=== PATIENT | female | born 1990 | race Caucasian/White ===

== ENCOUNTER 2021-05-12 11:03 | Emergency (ER) | payer BC, SELFPAY ==
--- NOTE | ~2021-05-12 | US_ITS ---
EXAMINATION: US pelvic complete w TV DATE: 05/12/2021 15:02 INDICATION: Severe pelvic pain, history of section and tubal ligation TECHNIQUE: Multiple transabdominal and endovaginal sonographic images of the pelvis were obtained. COMPARISON: None. FINDINGS: The uterus measures 3.4 x 6.6 x 4.9 cm. The endometrial complex measures 14 mm. There is a small amount of fluid in the endocervical canal. The right ovary measures 3.4 x 1.8 x 1.9 cm. The lef t ovary is not well demonstrated. There is an approximately 7.4 x 3.1 cm complex cystic and solid mas s of the left adnexa. There is a moderate volume of free fluid in the left adnexa and pelvis. IMPRESSION: 1. Complex cystic and solid mass of the left adnexa which could reflect an ovarian neoplasm, they rel ated to the fallopian tube, or of other etiology. Further evaluation by CT with contrast is recommend ed. These findings and recommendations were discussed with Dr. Araceli Saucedo MD in the Emergency Department at 1519 hours on 05/12/2021. Reviewed, dictated and finalized at location A. CARE COORDINATOR IMPRESSION: 1. Complex cystic and solid mass of the left adnexa which could reflect an ovar eliza neoplasm, they related to the fallopian tube, or of other etiology. Further evaluation by CT with contrast is recommended. These findings and recommendati ons were discussed with Dr. Araceli Saucedo MD in the Emergency Department at 1519 hours on 05/12/2021.
--- NOTE | ~2021-05-12 | CT_ITS ---
EXAMINATION: CT abdomen pelvis w con DATE: 05/12/2021 16:17 INDICATION: Left adnexal mass. Low abdominal pain. TECHNIQUE: Computed tomography (CT) of the abdomen and pelvis was performed with 100 mL Omnipaque 350 intravenous contrast. Automated exposure control and iterative reconstruction technique were employe d. The dose-length product was 678.33 mGy-cm. COMPARISON: Pelvis ultrasound 05/12/2021 FINDINGS: The visualized portions of the lung bases demonstrate mild atelectasis. No pleural effusion . The heart size is normal. No pericardial effusion. The liver, spleen, pancreas, and adrenal glands are normal. There are gallstones in the gallbladder, which is normal in size. There is a 7 mm cyst in right kidney. Left kidney is normal. There are no dilated loops of bowel. The appendix is normal. Th ere is a small umbilical hernia containing fat. There are no pathologically enlarged lymph nodes. The re is acute hematoma in the pelvis around the uterus and ovaries. There is mild thoracic spondylosis. IMPRESSION: 1. Acute hematoma in the pelvis around the uterus and ovaries. This finding could be from a ruptured cyst of the left ovary. Reviewed, dictated and finalized at location A. EL HEADER IMPRESSION: 1. Acute hematoma in the pelvis around the uterus and ovaries. This finding cou ld be from a ruptured cyst of the left ovary.
[2021-05-12 11:17] VITALS: BP 164/82; PULSE 94; RESP 20; TEMP 36.7; O2SAT 100
--- NOTE | 2021-05-12 14:55 | ED.ABDPAIN ---
HPI - Abdominal Pain General Chief Complaint: Abdominal Pain Stated Complaint: LOWER ABD PAIN X1D Time Seen by Provider: 05/12/21 13:52 Source: patient and RN notes reviewed Mode of arrival: ambulatory Limitations: no limitations History of Present Illness HPI narrative: This is a 31 year old female with history of Polycystic ovarian syndrome who presents for evaluation of pelvic pain. She developed sudden onset pelvic pain yesterday morning. Her pain has been constant and gradually worsening. She states pain feels similar to her other c section procedures. She took ibuprofen yesterday for her pain but she did not get any relief. She is also complaining about patient in her shoulders. She denies fever, nausea, vomiting, abnormal vaginal discharge or vaginal bleeding. She was evaluated by her life enrichment manager, Dr. Holder, yesterday for her pain. She was placed on Bactrim for UTI yesterday. She has been having urinary hesitancy for several weeks. Related Data Allergies Allergy/AdvReac Type Severity Reaction Status Date / Time No Known Allergies Allergy Verified 05/12/21 14:56 Review of Systems Review of Systems: All systems reviewed & are unremarkable except as noted in HPI and below PMFSH Past Medical History Medical History (Updated 05/12/21 @ 17:16 by Araceli Saucedo MD) PCOS (polycystic ovarian syndrome) Surgical History Surgical History (Updated 05/12/21 @ 15:05 by Araceli Saucedo MD) H/O section Social History Social History (Updated 05/12/21 @ 15:05 by Araceli Saucedo MD) Smoking status: Former smoker Alcohol intake: never Substance use: never Exam Const: General: alert Orientation/consciousness: patient oriented x3 Eyes: EOM: EOMs intact bilaterally Resp: Effort & Inspection: normal respiratory effort and no retractions Auscultation: clear to auscultation bilaterally Cardio: Rate: regular rate Rhythm: regular rhythm Heart sounds: no murmurs GI: GI Palp: Yes Soft to palpation, Yes Tenderness to palpation present (GI) (diffuse), No Guarding due to palpation present (GI) and No Rigid due to palpation Auscultation: normal bowel sounds : General: Yes no CVA tenderness Skin: General skin exam: normal color Rashes: no rashes Neuro: General: patient oriented x3, moves all extremities and CN's II-XI intact bilaterally Psych: Mental Status: mental status grossly normal Affect: normal affect Course Reevaluation(s) Reevaluation #1: I Discussed with patient CT and US results. She has normal hemoglobin. She is comfortable with discharge with pain medication and she was given return precautions. Date: 05/12/21 Time: 17:12 Consultations Consultation #1: I discussed US and CT with Dr. Obando. He agrees patient can be discharge home with pain medication and he can follow up with patient on Saturday. Date: 05/12/21 Time: 17:11 Vital Signs Vital signs: Vital Signs Temperature 98.0 F 05/12/21 11:17 Pulse Rate 94 05/12/21 11:17 Respiratory Rate 20 05/12/21 11:17 Blood Pressure 164/82 H 05/12/21 11:17 Pulse Oximetry 100 05/12/21 11:17 Temperature 98.0 F 05/12/21 11:17 Pulse Rate 91 05/12/21 17:13 Respiratory Rate 18 05/12/21 17:13 Blood Pressure 130/84 05/12/21 17:13 Pulse Oximetry 98 05/12/21 17:13 MDM - Abdominal Pain Lab Data Attestation: I reviewed the patient's lab results. Result diagrams: 05/12/21 15:08 05/12/21 15:08 Labs: Lab Results 05/12/21 05/12/21 05/12/21 Range/Units 15:08 15:08 15:08 WBC 9.5 (4.5-10.0) K/mm3 RBC 4.37 (4.2-5.4) M/mm3 Hgb 13.1 (12.0-15.0) g/dL Hct 39.5 (37.0-47.0) % MCV 90.4 (80-100) fl MCH 30.0 (26-34) pg MCHC 33.2 (32-36) g/dl RDW 12.4 (11.5-14.5) % Plt Count 279 (150-375) k/mm3 MPV 9.4 (7.4-10.4) fl Immature Gran % (Auto) 0.3 (0-0.5) % Neut % (Auto) 60.7 (45.5-73.1) % Lymph % (Auto) 31.7 (18.
[2021-05-12] MEDS: KETOROLAC 30 MG/ML VIAL (*BKC) IV PUSH (15:01)
[2021-05-12 15:02] VITALS: BP 108/52; PULSE 70; RESP 18; O2SAT 98
[2021-05-12 15:23] LABS: Basophils Percent Auto 0.3 % (0.2-1.2); Eosinophils Absolute Auto 0.2 K/mm3 (0-0.3); Eosinophils Percent Auto 2.2 % (0-4.4); Hematocrit 39.5 % (37.0-47.0); Hemoglobin 13.1 g/dL (12.0-15.0); Immature Granulocyte Absolute 0.03 K/mm3 (0.00-0.031); Immature Granulocyte Percent A 0.3 % (0-0.5); Lymphocytes Percent Auto 31.7 % (18.3-44.2); Mean Corpuscular HGB Conc 33.2 g/dl (32-36); Mean Corpuscular Volume 90.4 fl (80-100); Mean Platelet Volume 9.4 fl (7.4-10.4); Monocytes Absolute Auto 0.5 K/mm3 (0.1-0.6); Monocytes Percent Auto 4.8 % (2.6-8.5); Neutrophils Absolute Auto 5.8 K/mm3 (1.3-6.7); Neutrophils Percent Auto 60.7 % (45.5-73.1); Platelet Count Result 279 k/mm3 (150-375); Red Blood Count 4.37 M/mm3 (4.2-5.4); Red Cell Distribution Width 12.4 % (11.5-14.5); White Blood Count 9.5 K/mm3 (4.5-10.0)
[2021-05-12 15:34] LABS: Alanine Aminotransferase 16 U/L (4-35); Albumin Level 4.6 g/dL (3.5-5.1); Alkaline Phosphatase 81 U/L (38-126); Anion Gap 10 mmol/L (8-16); Aspartate Amino Transferase 20 U/L (14-36); Bilirubin,Total 0.8 mg/dL (0.2-1.3); Blood Urea Nitrogen 11 mg/dL (7-17); Calcium 9.1 mg/dL (8.4-10.2); Carbon Dioxide 22 mmol/L (22-30); Chloride 104 mmol/L (98-107); Estimated CRCL calculation 114 ml/min; Estimated Glomerular Filt Rate > 60; Glucose 96 mg/dL (65-110); Lipase 29 U/L (23-300); Potassium 3.6 mmol/L (3.4-5.0); Sodium 136 mmol/L (137-145)
[2021-05-12 15:36] LABS: Add Urine Microscopic? YES; Appearance Urine Cloudy (Clear); Bacteria Urine Trace /hpf; Bilirubin Urine Negative (Negative); Blood Urine Negative (Negative); Color Urine Yellow (Yellow); Glucose Urine UA Negative (Negative); Ketones Urine Trace mg/dL (Negative); Leukocyte Esterase Ur Negative LEU/UL (Negative); Mucus Urine Rare /lpf; Nitrate Urine Negative (Negative); Protein Urine Negative (Negative); Specific Grav Ur 1.025 (1.001-1.035); Squamous Epithelial Cell Urine Many /hpf (Few)
[2021-05-12 17:13] VITALS: BP 130/84; PULSE 91; RESP 18; O2SAT 98
== END 2021-05-12 17:51 | disposition home or self-care (01) ==
PROVIDERS: Emergency Provider General Practice
DX: E28.2 Polycystic ovarian syndrome (principal); K66.1 Hemoperitoneum; Z87.891 Personal history of nicotine dependence
CPT/HCPCS: 36415; 74177; 76830; 76856; 80053; 81001; 81025; 83690; 85025; 96374; 99284; J1885; Q9967

== ENCOUNTER 2023-01-04 13:06 | Emergency (ER) | payer OTHER, BC, SELFPAY ==
--- NOTE | ~2023-01-04 | XR_ITS ---
EXAMINATION: XR foot RT min 3V DATE: 01/04/2023 13:28 INDICATION: Right foot injury and pain. TECHNIQUE: 4 views of right foot were obtained. COMPARISON: None. FINDINGS: Bone alignment is normal. No fracture. There is mild osteoarthritis of first metatarsophala ngeal joint and middle naviculocuneiform joint. IMPRESSION: 1. Mild polyarticular osteoarthritis. Reviewed, dictated and finalized at location A.
[2023-01-04 13:18] VITALS: BP 155/102; PULSE 109; RESP 16; TEMP 37.4; O2SAT 99
--- NOTE | 2023-01-04 13:29 | PC.NURSE ---
PT DECLINED WHEELCHAIR TO RADIOLOGY AND ICE FOR COMFORT
--- NOTE | 2023-01-04 13:30 | ED.LOWEXIN ---
HPI - Extremity Injury (Lower) General Chief Complaint: Extremity Injury, Lower Stated Complaint: Right Foot Injury Source: patient and RN notes reviewed History of Present Illness HPI Narrative: 32 yo F presents to urgent care with complaints of right foot pain. Pt states last night, she was getting down, out of her work van when she rolled her right foot underneath her, causing her to fall to the ground. Pt is reporting right foot pain and swelling. Denies any head injury or LOC. Pt presents wearing her father's medical boot, stating this is the only way she can walk. Related Data Allergies Allergy/AdvReac Type Severity Reaction Status Date / Time No Known Allergies Allergy Verified 05/12/21 14:56 Review of Systems Review of Systems: CONSTITUTIONAL: Denies fever, chills, or sweats. EYES: Denies visual changes, redness, or discharge. ENT: Denies otalgia and sore throat CARDIOVASCULAR: Denies chest pain, palpitations, or edema. RESPIRATORY: Denies cough or dyspnea. GASTROINTESTINAL: Denies abdominal pain, nausea, vomiting, or diarrhea. GENITOURINARY: Denies dysuria or hematuria. SKIN: Denies rash or itching. MUSCULOSKELETAL: Right dorsal foot pain NEUROLOGIC: Denies headache, numbness, or weakness. Pertinent positives per HPI. [facility] Past Medical History Medical History (Updated 01/04/23 @ 13:51 by Jonelle Sahu APRN) PCOS (polycystic ovarian syndrome) Surgical History Surgical History (Updated 05/12/21 @ 15:05 by Araceli Saucedo MD) H/O section Social History Social History (Updated 05/12/21 @ 15:05 by Araceli Saucedo MD) Smoking status: Former smoker Alcohol intake: never Substance use: never Comments At the time of my signature, I reviewed and agree with the nursing past medical, surgical, social, and family history. There is no relevant family history pertinent to the patient complaint. Exam Narrative: GENERAL: This is a well-nourished, well-developed patient, in no apparent distress. HEAD: normocephalic, atraumatic. EYES: Sclera clear/white. Vision is grossly intact. EARS: External ears normal, auditory canals clear and without drainage. Hearing grossly intact. NOSE: External nose normal with no obvious nasal discharge, nares without redness, no rhinorrhea. THROAT: Mucous membranes moist, posterior pharynx clear. NECK: Neck supple, non-tender without lymphadenopathy, masses or thyromegaly. CARDIOVASCULAR: Regular rate RESPIRATORY: No respiratory distress SKIN: warm, intact with no suspicious lesions or rash, good texture and turgor. NEURO: awake, alert, and oriented to person, place and time. There were no obvious focal neurologic abnormalities. EXTREMITIES: Right dorsal foot pain and swelling, particularly over the 4th and 5th metatarsals. BACK: Nontender without deformity or crepitus. No flank tenderness. Course Course Level of Care: Express Care Visit Vital Signs Vital signs: Vital Signs Temperature 99.3 F 01/04/23 13:18 Pulse Rate 109 H 01/04/23 13:18 Respiratory Rate 16 01/04/23 13:18 Blood Pressure 155/102 H 01/04/23 13:18 Pulse Oximetry 99 01/04/23 13:18 Oxygen Delivery Room Air 01/04/23 13:18 Temperature 99.3 F 01/04/23 13:18 Pulse Rate 109 H 01/04/23 13:18 Respiratory Rate 16 01/04/23 13:18 Blood Pressure 155/102 H 01/04/23 13:18 Pulse Oximetry 99 01/04/23 13:18 Oxygen Delivery Room Air 01/04/23 13:18 reviewed MDM - Extremity Injury (Lower) MDM Narrative Medical decision making narrative: Use the RICE method at home. May take ibuprofen and/or Tylenol if needed. Follow-up with specialist next week. Differential Diagnosis Differential diagnosis: Likely ankle sprain and strain and other (foot fracture, foot sprain) Imaging Data Radiologist's impression: [facility] [address] [place] [address] XRay Report Signed Patient: Janet Saucedo
== END 2023-01-04 14:01 | disposition home or self-care (01) ==
PROVIDERS: Emergency Provider Nurse Practitioner Family; PCP Physician Assistant
DX: S93.601A Unspecified sprain of right foot, initial encounter (principal); W19.XXXA Unspecified fall, initial encounter; E28.2 Polycystic ovarian syndrome; Z87.891 Personal history of nicotine dependence
CPT/HCPCS: 73630; 99213; G0463

== ENCOUNTER 2023-01-07 11:23 | Emergency (ER) | payer OTHER, BC, SELFPAY ==
--- NOTE | ~2023-01-07 | XR_ITS ---
EXAMINATION: XR foot RT min 3V DATE: 01/07/2023 12:06 INDICATION: Right foot injury. TECHNIQUE: 4 views of right foot were obtained. COMPARISON: None. FINDINGS: There is mild hallux valgus. There are bone fragments dorsolateral to navicular. Joint spac es are normal. There is an enthesophyte at posterior aspect of calcaneal tuberosity. IMPRESSION: 1. Bone fragments dorsolateral to navicular, consistent with avulsion fracture fragments. Reviewed, dictated and finalized at location A.
--- NOTE | ~2023-01-07 | XR_ITS ---
EXAMINATION: XR ankle RT min 3V DATE: 01/07/2023 12:06 INDICATION: Right ankle injury. TECHNIQUE: 4 views of right ankle were obtained. COMPARISON: None. FINDINGS: Bone alignment is normal. No fracture. Joint spaces are normal. There is an enthesophyte at posterior aspect of calcaneal tuberosity. There is ankle soft tissue swelling. IMPRESSION: 1. No fracture. Reviewed, dictated and finalized at location A. IMPRESSION: 1. No fracture.
[2023-01-07 11:43] VITALS: BP 135/87; PULSE 82; RESP 18; TEMP 36.8; O2SAT 100
--- NOTE | 2023-01-07 13:23 | ED.LOWEXIN ---
HPI - Extremity Injury (Lower) General Chief Complaint: Extremity Injury, Lower Stated Complaint: foot injury Time Seen by Provider: 01/07/23 12:08 History of Present Illness HPI Narrative: Patient is a 32-year-old female presenting with a foot injury. 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 States that she has had bruising and pain since then. States that she has been wearing a medical boot that she has from a prior injury which has been helping. She is also been icing it which has been helping. She is concerned for a broken bone. She denies further complaints or injuries. Related Data Allergies Allergy/AdvReac Type Severity Reaction Status Date / Time No Known Allergies Allergy Verified 01/07/23 11:55 Review of Systems Review of Systems: All systems reviewed & are unremarkable except as noted in HPI and below PMFSH Past Medical History Medical History PCOS (polycystic ovarian syndrome) Surgical History Surgical History H/O section Social History Social History Smoking status: Former smoker Alcohol intake: never Substance use: never Exam Narrative: GENERAL: Well-appearing, well-nourished, and in no acute distress. Pleasant and cooperative HEAD: Normocephalic, atraumatic. EYES: PERRLA and EOMI. ENT: Nares clear, no rhinorrhea or epistaxis. Mucous membranes moist. NECK: Supple. CHEST: No respiratory distress. HEART: Regular rate and rhythm. Normal peripheral pulses. ABDOMEN: Nondistended EXTREMITIES: Normal range of motion. Right foot with ecchymoses on the dorsum extending to the base of the toes, very tender over navicular bone, no malleolar tenderness SKIN: Warm, dry, no rash. NEURO: No focal deficits. Alert and oriented x3. PSYCH: Normal mood and affect. Course Vital Signs Vital signs: Vital Signs Temperature 98.2 F 01/07/23 11:43 Pulse Rate 82 01/07/23 11:43 Respiratory Rate 18 01/07/23 11:43 Blood Pressure 135/87 01/07/23 11:43 Pulse Oximetry 100 01/07/23 11:43 Oxygen Delivery Room Air 01/07/23 11:43 Temperature 98.2 F 01/07/23 11:43 Pulse Rate 82 01/07/23 11:43 Respiratory Rate 18 01/07/23 11:43 Blood Pressure 135/87 01/07/23 11:43 Pulse Oximetry 100 01/07/23 11:43 Oxygen Delivery Room Air 01/07/23 11:43 MDM - Extremity Injury (Lower) MDM Narrative Medical decision making narrative: Patient is a 32-year-old female presenting with a right foot and ankle injury after rolling it while getting out of the van. Vital stable. Exam remarkable for the above. X-rays of the foot and ankle reveal avulsion fracture involving the right navicular bone. Discussed the findings with the patient. Advised that she continue to use her medical grade boot as needed. Discussed appropriate supportive care and advised pain control with Tylenol and ibuprofen. Advised PCP follow-up. Appropriate return precautions given. Patient voiced understanding and is agreeable with plan. Discharged in stable condition. Differential Diagnosis Differential diagnosis: Likely ankle sprain and strain, ankle fracture and other (foot fracture) Medical Records Attestation: I reviewed the patient's medical records. Imaging Data Radiologist's impression: ITS Impressions Ankle X-Ray 01/07/23 12:08 IMPRESSION: 1. No fracture. Foot X-Ray 01/07/23 12:08 IMPRESSION: 1. Bone fragments dorsolateral to navicular, consistent with avulsion fracture fragments. Critical Care Time Critical Care Time Critical Care Time: No Discharge Plan Discharge Clinical Impression: Avulsion fracture of navicular bone of foot Patient Disposition: Home, Self-Care Condition: Stable Instructions: An
== END 2023-01-07 13:40 | disposition home or self-care (01) ==
PROVIDERS: Emergency Provider Emergency Medicine; PCP Physician Assistant
DX: S92.251A Displaced fracture of navicular [scaphoid] of right foot, initial encounter for closed fracture (principal); E28.2 Polycystic ovarian syndrome; Z87.891 Personal history of nicotine dependence; X50.9XXA Other and unspecified overexertion or strenuous movements or postures, initial encounter
CPT/HCPCS: 73610; 73630; 99283

== ENCOUNTER 2023-07-25 10:35 | Emergency (ER) | payer BC, SELFPAY ==
[2023-07-25 10:40] VITALS: BP 148/85; PULSE 105; RESP 14; TEMP 37.5; O2SAT 99
--- NOTE | 2023-07-25 11:20 | ED.URI ---
HPI - URI/Sore Throat General Chief Complaint: Upper Respiratory Infection Stated Complaint: flu symptoms/ear Time Seen by Provider: 07/25/23 11:12 Source: patient Mode of arrival: ambulatory Limitations: no limitations History of Present Illness HPI Narrative: 33-year-old female presents to Express Care with complaint of cough, left ear pain, sore throat and generalized body aches since yesterday. Patient endorsing air pain 12/03. Patient denies allergies, current medications, fever, nausea vomiting or diarrhea. Patient endorses that she is currently on her menstrual cycle. Patient denies any known sick contacts. Patient able to tolerate fluids by mouth. Related Data Allergies Allergy/AdvReac Type Severity Reaction Status Date / Time No Known Allergies Allergy Verified 07/25/23 10:49 Review of Systems Review of Systems: All systems reviewed & are unremarkable except as noted in HPI and below Constitutional: Constitutional: Reports as per HPI, Reports body ache(s), Denies fever(s) and Denies headache(s) Eyes: Eyes: Reports no additional eye complaints ENT: Reports otalgia (left) and Reports sore throat Cardiovascular: Cardiovascular: Reports no additional cardiovascular complaints, Denies chest pain and Denies dyspnea Respiratory: Respiratory: Reports as per HPI, Reports cough, Denies pain on inspiration and Denies dyspnea Musculoskeletal: Musculoskeletal: Reports no additional musculoskeletal complaints Neurologic: Reports system reviewed and no additional complaints, except as documented Psychiatric: Psychiatric: Reports no additional psychiatric complaints PMFSH Past Medical History Medical History PCOS (polycystic ovarian syndrome) Surgical History Surgical History H/O section Social History Social History Smoking status: Former smoker Alcohol intake: never Substance use: never Comments At the time of my signature, I reviewed and agree with the nursing past medical, surgical, social, and family history. There is no relevant family history pertinent to the patient complaint. Exam Const: General: cooperative, healthy appearing, comfortable, no acute distress, well developed, alert, tired appearing and well nourished Nutritional Appearance: well nourished Orientation/consciousness: patient oriented x3 Limitations: no limitations HENMT: Head: normal to inspection Ears: external ears normal, Abnormal EAC present and TM abnormal bulging, erythematous, with fluid behind the TM and with loss of landmarks Face/Nose/Sinus: Normal external nose present, Normal nares present, normal facial exam, No erythema and No edema Face and sinus: normal facial exam, no erythema and no edema Mouth: Yes Normal oral and palatal mucosa present Throat: uvula midline, posterior oropharynx abnormal erythema, postnasal drainage and no uvular edema Eyes: General: appearance normal, both eyes and all related structures Neck: Neck: normal visual inspection, full ROM and no meningeal signs Lymphatic: no lymphadenopathy noted and no lymphedema noted Chest: Chest palpation & inspection: normal inspection of the chest Resp: Effort & Inspection: normal respiratory effort and able to speak in complete sentences Auscultation: clear to auscultation bilaterally Cardio: Jugular venous distension: no JVD Rate: regular rate Rhythm: regular rhythm Peripheral pulses: Peripheral pulses 2+ throughout Back/Spine/Pelvis: Cervical Spine: cervical ROM normal Skin: General skin exam: normal color, no rashes or lesions noted and turgor normal Neuro: General: patient oriented x3, gait normal, moves all extremities and no meningeal signs Speech: normal speech Gait exam (Neuro): Normal gait present Extrem: General: normal to inspection, full ROM and capill
== END 2023-07-25 11:26 | disposition home or self-care (01) ==
PROVIDERS: Nurse Practitioner; Emergency Provider Nurse Practitioner Family; PCP Physician Assistant
DX: H66.92 Otitis media, unspecified, left ear (principal); Z20.822 Contact with and (suspected) exposure to COVID-19; Z87.891 Personal history of nicotine dependence; E28.2 Polycystic ovarian syndrome
CPT/HCPCS: 87081; 87426; 87804; 87880; 99213; G0463

== ENCOUNTER 2024-10-16 09:29 | Emergency (ER) | payer BC, SELFPAY ==
--- OUTSIDE RECORDS SUMMARY | 2024-10-16 09:31 | XMS_ITS | Clinical Summary ---
Author Organization [facility] Address [address] [address] Phone Care Team Providers Care Client Engagement Manager Name Role Phone Rachel Mancilla PAC Primary Care Pro vider Antonino Medrano MD Unavailable [phone] Allergies No known active allergies Medications fluconazole (DIFLUCAN) 150 MG Tablet Take 1 Tablet by mouth daily. 3 Tablet Active Additional Information Patient not taking.Reported on 07/29/2024 Active Problems No known active problems Encounters Date Type Department Care Team Description 07/29/2024 2:00 PM INSIDE SALES SPECIALIST Office Visit [facility] - Internal Medicine - [place] [address] [address] Rachel Mancilla PAC Enlarged lymph node in neck (Primary Dx); Upper respiratory tract infection, unspecified type Discharge Disposition: Discharged to home or Selfcare 07/29/2024 Travel from Last 3 Months Immunizations Immunization Administration Dates Next Due Influenza Vaccine 05/09/2017 Influenza Vaccine, Quadrivalent, PF 06/05/2021 TDAP Vaccine 07/05/2017,01/24/2016 Family History Medical History Relation Name Comments Congestive Heart Failure Father Relation Name Status Comments Father Alive Mother Alive Social History Tobacco Use Types Packs/Day Years Used Date Smoking Tobacco: Former Passive Smoke Exposure: Past Smokeless Tobacco: Never Tobacco Cessation:Counseling Given: No Alcohol Use Standard Drinks/Week Comments Yes 0 (1 standard drink = 0.6 oz pur e alcohol) [facility] Utilities Answer Date Recorded In the past 12 months has [employer], [employer], or [employer] threatened to shut off services in your home? No 07/29/2024 Social Connection and Isolat ion Panel [NHANES] Answer Date Recorded In a typical week, how many times do you talk on the phone with family, friends, or neighbors? More than three times a week 07/29/2024 How often do you get togethe r with friends or relatives? Once a week 07/29/2024 How often do you attend chur ch or jehovah's witness services? Never 07/29/2024 Do you belong to any clubs o r organizations such as congregation groups, unions, fraternal or athletic groups, or school groups? No 07/29/2024 How often do you attend meet ings of the clubs or organizations you belong to? Never 07/29/2024 Are you , , di vorced, , never , or living with a partner? 07/29/2024 AUDIT-C Answer Date Recorded Q1: How often do you have a drink containing alc ohol? 2-3 times a week 07/29/2024 Q2: How many drinks containi ng alcohol do you have on a typical day when you are drinking? 1 or 2 07/29/2024 Q3: How often do you have si x or more drinks on one occasion? Never 07/29/2024 Overall Financial Resource Strain (CARDIA) Answe r Date Recorded How hard is it for you to pa y for the very basics like food, housing, medical care, and heating? Not hard at all 07/29/2024 PHQ-2 Answer Date Recorded Total Score - Questions 1-9 1 09/2024 [facility] - Occupational Stress Questionnaire Answer Date Recorded Do you feel stress - tense, restless, nervous, or anxious, or unable to sleep at night because your mind is troubled all the time - these days? To some extent 07/29/2024 Exercise Vital Sign Answer Date Recorde d On average, how many days pe r week do you engage in moderate to strenuous exercise (like a brisk walk)? 3 days 07/29/2024 On average, how many minutes do you engage in exercise at this level? 20 min 07/29/2024 Hunger Vital Sign Answer Date Recorded Within the past 12 months, y ou worried that your food would run out before you got the money to buy more. Never true 07/30/19 25 Within the past 12 months, t he food you bought just didn't last and you didn't have money to get more. Never true 07/29/2024 PRAPARE - Transportation Answer Date Re corded In the past 12 months, has l ack of transportation kept you from medical appointments or from getting medications? No 09/2024 In the past 12 months, has l ack of transportation kept you from meetings, work, or from getting things needed for daily living? No 07/29/2024 Housing Stability Vital Sign Answer Kamar e Recorded In the last 12 months, was t here a time when you were not able to pay the mortgage or rent on time? No 07/29/2024 In the past 12 months, how m any times have you moved where you were living? 0 07/29/2024 At any time in the past 12 m [facility], were you homeless or living in a jail (including now)? No 07/29/2024 Comments Unknown Sex and Gender Information Value Date Recorded Sex Assigned at Not on file Legal Sex Female 10:07 PM CDT Gender Identity Not on file Sexual Orientation Not on file Last Filed Vital Signs Vital Sign Reading Time Taken Comments Blood Pressure 122/80 07/29/2024 2:03 PM INSIDE SALES SPECIALIST Pulse 89 07/29/2024 2:03 PM INSIDE SALES SPECIALIST Temperature 36.6 C (97.8 F) 07/29/2024 2:03 PM INSIDE SALES SPECIALIST Respiratory Rate 12 07/29/2024 2:03 PM INSIDE SALES SPECIALIST Oxygen Saturation 98% 07/29/2024 2:03 PM INSIDE SALES SPECIALIST Inhaled Oxygen Concentration - - Weight 96.6 kg (213 lb) 07/29/2024 2:03 PM INSIDE SALES SPECIALIST Height 170.2 cm (5' 7 ) 01/16/2023 12:48 PM CDT Body Mass Index 33.36 01/16/2023 12:48 PM CDT Plan of Treatment Health Maintenance Due Date Last Done Comments Hepatitis C Virus (HCV) Screening 1989 Hepatitis B Immunization (1 of 3 - 19+ 3-dose series) 02/05/2008 Pap Smear 2010 Cervical Cancer Screening (CCS) 2019 HPV/Cotest 2019 SARS-COV-2 Immunization ( season) 2024 06/05/2021, 09/20/2020, 08/30/2020 Influenza Immunization (Season Ended) 2025 06/05/2021, 05/09/2017 Td Immunization Every 10 Years (Adults With 1 Tdap) 07/05/2027 07/05/2017, 01/24/2016 Respiratory Syncytial Virus (RSV) Immunization (Adult) (1 - 1-dose 75+ series) 02/05/2064 DTaP/Tdap/Td Immunization Discontinued 2017, 01/24/2016 Meningococcal Immunization (ACWY) Aged Out No longer eligible based on patient's age to complete this topic Pneumococcal Immunization Combined Aged Out No longer eligible based on patient's age to complete this topic Rotavirus Immunization Aged Out No lo nger eligible based on patient's age to complete this topic Procedures Procedure Name Priority Date/Time Associated Diagnosis Comments POC GROUP A STREP BY MOLECULAR Routine 07/29/2024 2:33 PM INSIDE SALES SPECIALIST Enlarged lymph node in neck from Last 3 Months Results * POC GROUP A STREP BY MOLECULAR (07/29/2024 2:33 PM INSIDE SALES SPECIALIST) STREP A DNA Negative Negative, Invalid PROCEDURE CONTROL Valid 07/29/2024 2:33 PM INSIDE SALES SPECIALIST Rachel Mancilla PAC POINT OF CARE MONALISA MERISSA (MANUAL) Final Result from Last 3 Months Insurance [facility] Care Teams Client Engagement Manager Relationship Specialty Start Date End Date Rachel Mancilla PAC [address] [place] [address] PCP - General Physician Personnel Coordinator 06/26/21 Antonino Medrano MD #[id number] [id number] Consulting Physician General Surgery 09/14/22
[2024-10-16 09:34] VITALS: BP 159/86; PULSE 107; RESP 16; TEMP 37.3; O2SAT 99
--- NOTE | 2024-10-16 09:50 | ED.URI ---
HPI - URI/Sore Throat General Chief Complaint: Upper Respiratory Infection Stated Complaint: Sore Throat,Fever Time Seen by Provider: 10/16/24 09:50 History of Present Illness HPI Narrative: 34 yo female presented for c/o sore throat. nasal congestion and subjective fever. Onset 2 days. Symptoms started after being outside for several hours. Denies sob, wheezing, n/v/d. Took Advil. Related Data Home Medications ?Medication ?Instructions ?Recorded ?Confirmed ?Last Taken ?Type No Home Medications 10/16/24 10/16/24 Unknown History Allergies Allergy/AdvReac Type Severity Reaction Status Date / Time No Known Allergies Allergy Verified 10/16/24 09:44 Review of Systems Review of Systems: CONSTITUTIONAL: Denies body aches, reports fever, chills EYES: Denies visual changes, redness, or discharge. ENT: reports sore throat Denies rhinorrhea, congestion, or otalgia. CARDIOVASCULAR: Denies chest pain, palpitations, or edema. RESPIRATORY: Denies dyspnea. GASTROINTESTINAL: Denies abdominal pain, nausea, vomiting, or diarrhea. SKIN: Denies rash NEUROLOGIC: Denies headache [facility] Past Medical History Medical History PCOS (polycystic ovarian syndrome) Surgical History Surgical History H/O section Social History Social History Smoking status: Former smoker Alcohol intake: never Substance use: never Exam Narrative: GENERAL: Ill-appearing, no acute distress. EYES: conjunctivae clear ENT: Mucous membranes moist. Nasal congestion noted. TMs pearly turcios with normal light reflex and clear effusion bilaterally; no tragal tenderness. Oropharynx not erythematous without lesions. Tonsils enlarged 1+ and without exudate. No drooling, no hoarseness, no trismus, uvula midline. No tripod positioning, hot potato voice, or soft palate swelling. NECK: Supple. No lymphadenopathy CHEST: Clear to auscultation, breath sounds equal. No respiratory distress, speaks in full sentences. HEART: Regular rate and rhythm. No murmur heard. SKIN: Warm, dry, no rash. NEURO: Alert and oriented x3. Course Course Emergency Course: Patient is aware of diagnosis, understands and agrees to treatment plan. Anticipatory guidance given. Patient agrees to follow-up as directed and is aware of reasons to seek care at the emergency department. Portions of this record may have been created with voice recognition software Level of Care: Express Care Visit Vital Signs Vital signs: Vital Signs Temperature 99.1 F 10/16/24 09:34 Pulse Rate 107 H 10/16/24 09:34 Respiratory Rate 16 10/16/24 09:34 Blood Pressure 159/86 H 10/16/24 09:34 Pulse Oximetry 99 10/16/24 09:34 Oxygen Delivery Room Air 10/16/24 09:34 Temperature 99.1 F 10/16/24 09:34 Pulse Rate 107 H 10/16/24 09:34 Respiratory Rate 16 10/16/24 09:34 Blood Pressure 159/86 H 10/16/24 09:34 Pulse Oximetry 99 10/16/24 09:34 Oxygen Delivery Room Air 10/16/24 09:34 MDM - URI/Sore Throat MDM Narrative Medical decision making narrative: Neg strep result reviewed with pt. Advise supportive treatments. Patient is appropriate for outpatient treatment and follow-up. Differential Diagnosis Differential diagnosis: Likely upper respiratory infection, viral infection and pharyngitis Discharge Plan Discharge Clinical Impression: Upper respiratory infection Patient Disposition: Home Condition: Stable Instructions: Antibiotic Form, Upper Respiratory Infection (ED) Additional Instructions: Rapid strep swab was negative today You will be notified in a few days if the culture comes back positive for strep, and appropriate antibiotics will be called in at that time. if symptoms are due to a viral illness, it is not treated with antibiotics. Viral symptoms can be present for up to 10-14 days. Recommendations: Flonase spray and Zyrtec for sinus congestion Cough syrup may cause drowsiness; avoid driving or take it at night time. Tylenol every 8 hours as needed for pain/fever Soft foods, cool liquids, warm tea. Gargle with warm saltwater twice a day. Chloraseptic spray and throat lozenges. Rest and stay hydrated. --Follow up with your PCP --Go to the ER immediately if you cannot swallow your saliva, trouble breathing/wheezing, throat swelling, pain is persistent and severe Patient Language: Belarusian Prescriptions: No Action No Home Medications Follow-up/Referrals: Laurent,ROGELIO Ramos [Primary Care Provider] - Time of Disposition: 10:02
[2024-10-16 09:54] LABS: EDSTREPNEGPOS1 Negative (Negative)
== END 2024-10-16 10:05 | disposition home or self-care (01) ==
PROVIDERS: Emergency Provider Nurse Practitioner Family; PCP Physician Assistant
DX: J06.9 Acute upper respiratory infection, unspecified (principal); E28.2 Polycystic ovarian syndrome; Z87.891 Personal history of nicotine dependence
CPT/HCPCS: 87081; 87880; 99213; G0463